=== PATIENT | female | born 1940 | race Caucasian/White ===

== ENCOUNTER 2018-03-05 18:58 | Inpatient (IN) ==
[2018-03-05] MEDS ORDERED: Ondansetron 4 MG/2 ML VIAL IVP ONE (19:06)
--- NOTE | 2018-03-05 19:24 | Emergency Department Note ---
Disposition Clinical Impression: Small bowel obstruction, Accelerated hypertension Abdominal pain Qualifiers: Abdominal location: upper abdomen, unspecified Qualified Code(s): R10.10 - Upper abdominal pain, unspecified Disposition: Admitted As Inpatient Condition: Fair Time of Disposition: 23:54 Abdominal Pain HPI - General Chief Complaint: ED Abdominal Pain Stated Complaint: abd pain/nausea/diarrhea Time Seen by Provider: 03/05/18 19:04 Source: patient Mode of arrival: ambulatory Limitations: no limitations Nursing Notes Reviewed: Yes Vital Signs Reviewed: Yes - History of Present Illness HPI Narrative: 78-year-old female presents an emergency department with abdominal pain and diarrhea. She reports normal bowel movement earlier this morning prior to arrival she had a loose stool. She denies any blood. She has some sharp abdominal pain around 10 o'clock this morning that initially did appear better with a bowel movement. She is currently complaining of some sharp pain in the mid abdomen nonradiating. Denies any nausea or vomiting. Sometimes crampy in nature. She said at one point she did get a little diaphoretic but she was also trying to have a bowel movement at that time. She reports some lightheadedness but denies any syncope. She denies any chest pain or shortness of breath. She is not taken anything for the pain. Denies history of cardiac ischemic disease. She reports a history of bowel obstruction roughly to 3 years ago. States this feels similar to this but it was much located much lower. Patient has a history of hypertension and states is normally well- controlled. She was slightly hypertensive here on arrival. She denies any urinary symptoms. Pain Scale: 9 - Related Data Home Medications Medication Instructions Recorded Confirmed Acetaminophen w/Cod 300-30 mg 1 each PO Q4HR PRN 05/25/16 03/06/18 [Tylenol w/Codeine #3] Albuterol Neb [Proventil Neb] 2.5 mg IH Q4HR PRN 05/25/16 03/06/18 Albuterol Sulfate [Albuterol 2 puff IH Q4HR PRN 05/25/16 03/06/18 Inhaler] Aspirin Enteric Coated [Aspirin EC] 81 mg PO DAILY 05/25/16 03/06/18 Atorvastatin Calcium [Lipitor] 40 mg PO DAILY 05/25/16 03/06/18 Fluticasone Propionate Nasal 2 spr NS BID 05/25/16 03/06/18 [Flonase] Fluticasone/Vilanterol [Breo 1 puff IH DAILY 03/06/18 03/06/18 Ellipta 100-25 Mcg INH] Lisinopril [Zestril] 10 mg PO DAILY 03/06/18 03/06/18 Allergies Allergy/AdvReac Type Severity Reaction Status Date / Time No Known Allergies Allergy Verified 03/05/18 18:59 All systems ED: reviewed and negative except as stated. Review of Systems: As Per HPI Constitutional: Denies: fever, chills Cardiovascular: Denies: chest pain Gastrointestinal: Reports: abdominal pain, diarrhea. Denies: nausea, vomiting Genitourinary: Denies: urgency, dysuria Musculoskeletal: Denies: back pain Abdominal Pain PMH - Past Medical History Medical history: Reports: arthritis, asthma, GERD, hyperlipidemia, hypertension , other Psychiatric history: Reports: anxiety - Social History Smoking status: Never smoker Alcohol use: Reports: rarely Drug use: Reports: none Physical Exam - General Limitations: no limitations General appearance: alert - Head Head exam: atraumatic, normocephalic, normal inspection - Eye Eye exam: Present: normal appearance - ENT ENT exam: normal exam, normal oropharynx, mucous membranes moist - Neck Neck exam: Present: normal inspection, full ROM, trachea midline - Chest Chest inspection: Present: normal inspection, symmetric chest wall rise - Respiratory Respiratory exam: Present: normal lung sounds bilaterally. Absent: respiratory distress - Cardiovascular Cardiovascular exam: Present: regular rate, normal rhythm, normal heart sounds. Absent: systolic murmur, diastolic murmur - Abdominal Exam Abdominal exam: Present: soft, tenderness, normal bowel sounds. Absent: Non- Tender, distention, guarding, rebound, rigidity, Walters's sign, tenderness at McBurney's Point Abdominal tenderness: Present: epigastrium, diffuse - Extremities Exam Extremities exam: Present: normal inspection, full ROM. Absent: tenderness, pedal edema - Back Exam Back exam: Present: normal inspection, full ROM. Absent: tenderness, CVA tenderness (R), CVA tenderness (L) - Neurological Exam Neurological exam: Present: alert, oriented X3 - Psychiatric Psychiatric exam: Present: normal affect, normal mood - Skin Skin exam: Present: warm, dry, intact, normal color. Absent: rash, cyanosis, diaphoresis Course Course Narrative: Patient presents with abdominal pain and some diarrhea over the past 24 hours. History of obstruction roughly 2-3 years ago requiring surgery. Patient initially called this "dissection." After further clarification it was indeed actually an intestinal obstruction. Review of her prior medical record showed obstruction performed by surgery here. Her abdomen was soft but mildly tender diffusely mostly in the epigastric region. EKG did not reveal any acute ischemic changes. Chest pain workup was initiated given her hypertension. We proceeded with the CT of the abdomen to evaluate for dissection with which showed just a partial small bowel obstruction. Patient was not actively vomiting. She was afebrile. Mild leukocytosis. No signs of an organ damage. Her blood pressure is spontaneously improved but remained elevated systolic 170. My ED attending Dr. Holden consulted Dr Mark surgery who agrees with admission and symptom control. Admission to hospital is accepted. Patient remains in stable condition. Impression is abdominal pain and small bowel obstruction. Vital Signs Temperature 98.3 F 03/05/18 18:59 Pulse Rate 89 03/05/18 18:59 Respiratory Rate 20 03/05/18 18:59 Blood Pressure 202/83 03/05/18 18:59 O2 Sat by Pulse Oximetry 96 03/05/18 18:59 Temperature 98.3 F 03/06/18 18:59 Pulse Rate 76 03/06/18 18:59 Respiratory Rate 18 03/06/18 22:18 Blood Pressure 180/77 03/06/18 18:59 O2 Sat by Pulse Oximetry 93 03/06/18 22:18 Oxygen Delivery Oxygen Delivery Room Air Abdominal Pain - MDM Narrative Medical decision making narrative: Patient was discussed with my attending physician who agrees with ED management and final disposition. They independently evaluated the patient. Please refer to their attestation to this encounter for additional information. This note was generated by [employer] voice recognition software and as a result grammatical or spelling errors may occur using this program. - Medical Records Medical records reviewed: Yes I reviewed the patient's medical records. - Lab Data Lab results reviewed: Yes I reviewed the patient's lab results. Result diagrams: 03/06/18 04:49 03/05/18 19:32 Lab Results 03/05/18 03/05/18 03/05/18 Range/Units 19:32 19:32 19:32 WBC 14.5 H (4.3-11.1) K/mcL RBC 4.21 (3.82-4.97) M/mcL Hgb 11.4 L (11.5-15.4) g/dL Hct 35.0 L (35.3-44.9) % MCV 83.1 (83.0-100.0) fL MCH 27.1 L (28.0-33.3) pg MCHC 32.6 (31.6-35.5) g/dL RDW 15.7 H (11.5-14.5) % Plt Count 279 (140-400) K/mcL MPV 10.1 (9.4-12.4) fL Immature Gran % 0.6 (0-4) % Seg Neutrophils % 81.9 % Lymphocytes % 9.6 % Monocytes % 5.5 % Eosinophils % 2.1 % Basophils % 0.3 % Neutrophils # 11.9 H (1.6-8.9) K/mcL Lymphocytes # 1.4 (0.6-4.6) K/mcL Monocytes # 0.8 (0.0-1.3) K/mcL Eosinophils # 0.3 (0.0-0.6) K/mcL Basophils # 0.0 (0.0-0.2) K/mcL Sodium 141 (136-145) mEq/L Potassium 3.6 (3.5-5.1) mEq/L Chloride 102 (98-107) mEq/L Carbon Dioxide 28 (23-29) mEq/L BUN 18 (8-23) mg/dL Creatinine 1.04 (0.60-1.20) mg/dL Est GFR ( Amer) > 60 (> 60) Est GFR (Non-Af Amer) 52 L (> 60) BUN/Creatinine Ratio 17 (6-26) Glucose 147 H (70-105) mg/dL Calculated Osmolality 297 (280-300) Lactic Acid 1.3 (0.5-2.2) mmol/L Calcium 9.9 (8.6-10.3) mg/dL Total Bilirubin 0.5 (0.3-1.0) mg/dL Direct Bilirubin 0.1 (0.0-0.2) mg/dL Indirect Bilirubin 0.4 (0.0-1.2) mg/dL AST 35 (13-39) Units/L ALT 42 (7-52) Units/L Alkaline Phosphatase 85 (34-104) Units/L Troponin I < 0.03 (< 0.04) ng/mL Serum Total Protein 7.1 (6.4-8.9) g/dL Albumin 4.5 (3.5-5.7) g/dL Globulin 2.6 (2.4-3.5) g/dL Albumin/Globulin Ratio 1.7 (1.1-2.2) Lipase 34 (11-82) Units/L Urine Color (Yellow) Urine Clarity (Clear) Urine pH (5.0-8.0) pH Units Ur Specific [place] (1.010-1.025) Urine Protein (Neg-Trace) mg/dL Urine Glucose (UA) (Normal) mg/dL Urine Ketones (Negative) mg/dL Urine Blood (Negative) Urine Nitrite (Negative) Urine Bilirubin (Negative) Urine Urobilinogen (Normal) mg/dL Ur Leukocyte Esterase (Negative) Ur Culture Indicated? (NO) 03/05/18 Range/Units 19:42 WBC (4.3-11.1) K/mcL RBC (3.82-4.97) M/mcL Hgb (11.5-15.4) g/dL Hct (35.3-44.9) % MCV (83.0-100.0) fL MCH (28.0-33.3) pg MCHC (31.6-35.5) g/dL RDW (11.5-14.5) % Plt Count (140-400) K/mcL MPV (9.4-12.4) fL Immature Gran % (0-4) % Seg Neutrophils % % Lymphocytes % % Monocytes % % Eosinophils % % Basophils % % Neutrophils # (1.6-8.9) K/mcL Lymphocytes # (0.6-4.6) K/mcL Monocytes # (0.0-1.3) K/mcL Eosinophils # (0.0-0.6) K/mcL Basophils # (0.0-0.2) K/mcL Sodium (136-145) mEq/L Potassium (3.5-5.1) mEq/L Chloride (98-107) mEq/L Carbon Dioxide (23-29) mEq/L BUN (8-23) mg/dL Creatinine (0.60-1.20) mg/dL Est GFR ( Amer) (> 60) Est GFR (Non-Af Amer) (> 60) BUN/Creatinine Ratio (6-26) Glucose (70-105) mg/dL Calculated Osmolality (280-300) Lactic Acid (0.5-2.2) mmol/L Calcium (8.6-10.3) mg/dL Total Bilirubin (0.3-1.0) mg/dL Direct Bilirubin (0.0-0.2) mg/dL Indirect Bilirubin (0.0-1.2) mg/dL AST (13-39) Units/L ALT (7-52) Units/L Alkaline Phosphatase (34-104) Units/L Troponin I (< 0.04) ng/mL Serum Total Protein (6.4-8.9) g/dL Albumin (3.5-5.7) g/dL Globulin (2.4-3.5) g/dL Albumin/Globulin Ratio (1.1-2.2) Lipase (11-82) Units/L Urine Color Yellow (Yellow) Urine Clarity Clear (Clear) Urine pH 7.5 (5.0-8.0) pH Units Ur Specific [place] 1.014 (1.010-1.025) Urine Protein Negative (Neg-Trace) mg/dL Urine Glucose (UA) Normal (Normal) mg/dL Urine Ketones Negative (Negative) mg/dL Urine Blood Negative (Negative) Urine Nitrite Negative (Negative) Urine Bilirubin Negative (Negative) Urine Urobilinogen Normal (Normal) mg/dL Ur Leukocyte Esterase Negative (Negative) Ur Culture Indicated? NO (NO) - Radiology Data Radiology results reviewed: Yes I reviewed the patient's radiology results. Chest CTA 03/05/18 00:00 IMPRESSION: 1. No aortic dissection or pulmonary embolism. 2. High-grade partial small bowel obstruction with an abrupt transition at the anastomotic site in the ileum. No evidence of perforation. 3. Trace likely reactive free fluid in the pelvis. 4. Small volume of fluid in the mediastinal esophagus with questionable wall thickening distally as can be seen with reflux esophagitis. 5. Small indeterminate lesions in the bilateral kidneys. Consider further evaluation with nonemergent renal protocol MRI. 6. Cholelithiasis. 7. Status post hysterectomy. D/ / Rhys Conrad MD / Rhys Conrad MD Interpreting Provider: Rhys Conrad MD Abdomen/Pelvis CTA 03/05/18 20:20 IMPRESSION: 1. No aortic dissection or pulmonary embolism. 2. High-grade partial small bowel obstruction with an abrupt transition at the anastomotic site in the ileum. No evidence of perforation. 3. Trace likely reactive free fluid in the pelvis. 4. Small volume of fluid in the mediastinal esophagus with questionable wall thickening distally as can be seen with reflux esophagitis. 5. Small indeterminate lesions in the bilateral kidneys. Consider further evaluation with nonemergent renal protocol MRI. 6. Cholelithiasis. 7. Status post hysterectomy. D/ / Rhys Conrad MD / Rhys Conrad MD Interpreting Provider: Rhys Conrad MD - EKG Data EKG attestation: Yes I reviewed and interpreted this EKG. EKG shows normal: sinus rhythm Rate: normal Rhythm: NSR
[2018-03-05 19:45] LABS: Basophils % 0.3 %; Eosinophils # 0.3 K/mcL (0.0-0.6); Eosinophils % 2.1 %; Hemoglobin 11.4 g/dL (11.5-15.4); Immature Granulocytes % 0.6 % (0-4); Lymphocytes # 1.4 K/mcL (0.6-4.6); Lymphocytes % 9.6 %; Mean Corpuscular HGB Conc 32.6 g/dL (31.6-35.5); Mean Corpuscular Hemoglobin 27.1 pg (28.0-33.3); Mean Corpuscular Volume 83.1 fL (83.0-100.0); Mean Platelet Volume 10.1 fL (9.4-12.4); Monocytes # 0.8 K/mcL (0.0-1.3); Monocytes % 5.5 %; Neutrophils # 11.9 K/mcL (1.6-8.9); Platelet Count 279 K/mcL (140-400); Red Blood Count 4.21 M/mcL (3.82-4.97); Red Cell Distribution Width 15.7 % (11.5-14.5); Segmented Neutrophils % 81.9 %
[2018-03-05] MEDS ORDERED: Isovue-370 500 ML INFUS..BTL IV ONE (19:53)
[2018-03-05 19:58] LABS: Bilirubin,Urine Negative (Negative); Blood,Urine Negative (Negative); Clarity,Urine Clear (Clear); Color,Urine Yellow (Yellow); Glucose,Urine (UA) Normal (Normal); Ketones,Urine Negative (Negative); Leukocyte Esterase,Urine Negative (Negative); Nitrite,Urine Negative (Negative); PH,Urine 7.5 pH Units (5.0-8.0); Protein,Urine Negative (Neg-Trace); Specific Gravity,Urine 1.014 (1.010-1.025); Urobilinogen,Urine Normal (Normal)
[2018-03-05 20:07] LABS: Alanine Aminotransferase 42 Units/L (7-52); Albumin 4.5 g/dL (3.5-5.7); Albumin/Globulin Ratio 1.7 (1.1-2.2); Alkaline Phosphatase 85 Units/L (34-104); Aspartate Amino Transferase 35 Units/L (13-39); BUN/Creatinine Ratio 17 (6-26); Bilirubin,Direct 0.1 mg/dL (0.0-0.2); Bilirubin,Indirect 0.4 mg/dL (0.0-1.2); Bilirubin,Total 0.5 mg/dL (0.3-1.0); Blood Urea Nitrogen 18 mg/dL (8-23); Calcium 9.9 mg/dL (8.6-10.3); Carbon Dioxide 28 mEq/L (23-29); Chloride 102 mEq/L (98-107); Globulin 2.6 g/dL (2.4-3.5); Glucose 147 mg/dL (70-105); Lipase 34 Units/L (11-82); Osmolality,Calculated 297 (280-300); Potassium 3.6 mEq/L (3.5-5.1); Sodium 141 mEq/L (136-145); Total Protein 7.1 g/dL (6.4-8.9); Troponin I < 0.03 ng/mL (< 0.04); eGFR For African Americans > 60 (> 60); eGFR For Non-African Americans 52 (> 60)
--- NOTE | 2018-03-05 21:32 | Emergency Department Note ---
Disposition Clinical Impression: Abdominal pain Qualifiers: Abdominal location: upper abdomen, unspecified Qualified Code(s): R10.10 - Upper abdominal pain, unspecified Disposition: Still a Patient Condition: Fair Referrals: Bon Castellanos MD [Partnered Physician] - Forms: ED Satisfaction Letter, Work/School Release Abdominal Pain HPI - General Chief Complaint: ED Abdominal Pain Stated Complaint: abd pain/nausea/diarrhea Time Seen by Provider: 03/05/18 19:04 Source: patient Mode of arrival: ambulatory Limitations: no limitations Nursing Notes Reviewed: Yes Vital Signs Reviewed: Yes - History of Present Illness Pain Scale: 5 - Related Data Home Medications Medication Instructions Recorded Confirmed Acetaminophen w/Cod 300-30 mg 1 each PO Q4HR PRN 05/25/16 05/25/16 [Tylenol w/Codeine #3] Albuterol Neb [Proventil Neb] 2.5 mg IH Q4HR PRN 05/25/16 05/25/16 Albuterol Sulfate [Albuterol 2 puff IH Q4HR PRN 05/25/16 05/25/16 Inhaler] Aspirin Enteric Coated [Aspirin EC] 81 mg PO DAILY 05/25/16 05/25/16 Atorvastatin Calcium [Lipitor] 80 mg PO DAILY 05/25/16 05/25/16 Budesonide/Formoterol 160/4.5 2 puff IH BIDR 05/25/16 05/25/16 [Symbicort 160/4.5] Dicyclomine [Bentyl] 10 mg PO QID 05/25/16 05/25/16 Fluticasone Propionate Nasal 2 spr NS BID 05/25/16 05/25/16 [Flonase] Lisinopril/Hydrochlorothiazide 1 each PO DAILY 05/25/16 05/25/16 [Zestoretic 10-12.5 mg Tablet] traMADol [Ultram] 100 mg PO TID 05/25/16 05/25/16 Previous Rx's Medication Instructions Recorded Ondansetron ODT [Zofran ODT] 4 mg SL Q6HR PRN #15 tab.rapdis 05/21/16 Allergies Allergy/AdvReac Type Severity Reaction Status Date / Time No Known Allergies Allergy Verified 03/05/18 18:59 Constitutional: Denies: fever, chills Cardiovascular: Denies: chest pain Gastrointestinal: Reports: abdominal pain, diarrhea. Denies: nausea, vomiting Genitourinary: Denies: urgency, dysuria Musculoskeletal: Denies: back pain Abdominal Pain PMH - Past Medical History Medical history: Reports: arthritis, asthma, GERD, hyperlipidemia, hypertension , other Psychiatric history: Reports: anxiety - Social History Smoking status: Never smoker Alcohol use: Reports: rarely Drug use: Reports: none Physical Exam - General Limitations: no limitations General appearance: alert Course Vital Signs Temperature 98.3 F 03/05/18 18:59 Pulse Rate 89 03/05/18 18:59 Respiratory Rate 20 03/05/18 18:59 Blood Pressure 202/83 03/05/18 18:59 O2 Sat by Pulse Oximetry 96 03/05/18 18:59 Temperature 98.3 F 03/05/18 18:59 Pulse Rate 74 03/05/18 21:10 Respiratory Rate 18 03/05/18 21:10 Blood Pressure 180/87 03/05/18 21:10 O2 Sat by Pulse Oximetry 97 03/05/18 21:10 Oxygen Delivery Oxygen Delivery Room Air Abdominal Pain - Lab Data Result diagrams: 03/05/18 19:32 03/05/18 19:32 Lab Results 03/05/18 03/05/18 03/05/18 Range/Units 19:32 19:32 19:32 WBC 14.5 H (4.3-11.1) K/mcL RBC 4.21 (3.82-4.97) M/mcL Hgb 11.4 L (11.5-15.4) g/dL Hct 35.0 L (35.3-44.9) % MCV 83.1 (83.0-100.0) fL MCH 27.1 L (28.0-33.3) pg MCHC 32.6 (31.6-35.5) g/dL RDW 15.7 H (11.5-14.5) % Plt Count 279 (140-400) K/mcL MPV 10.1 (9.4-12.4) fL Immature Gran % 0.6 (0-4) % Seg Neutrophils % 81.9 % Lymphocytes % 9.6 % Monocytes % 5.5 % Eosinophils % 2.1 % Basophils % 0.3 % Neutrophils # 11.9 H (1.6-8.9) K/mcL Lymphocytes # 1.4 (0.6-4.6) K/mcL Monocytes # 0.8 (0.0-1.3) K/mcL Eosinophils # 0.3 (0.0-0.6) K/mcL Basophils # 0.0 (0.0-0.2) K/mcL Sodium 141 (136-145) mEq/L Potassium 3.6 (3.5-5.1) mEq/L Chloride 102 (98-107) mEq/L Carbon Dioxide 28 (23-29) mEq/L BUN 18 (8-23) mg/dL Creatinine 1.04 (0.60-1.20) mg/dL Est GFR ( Amer) > 60 (> 60) Est GFR (Non-Af Amer) 52 L (> 60) BUN/Creatinine Ratio 17 (6-26) Glucose 147 H (70-105) mg/dL Calculated Osmolality 297 (280-300) Lactic Acid 1.3 (0.5-2.2) mmol/L Calcium 9.9 (8.6-10.3) mg/dL Total Bilirubin 0.5 (0.3-1.0) mg/dL Direct Bilirubin 0.1 (0.0-0.2) mg/dL Indirect Bilirubin 0.4 (0.0-1.2) mg/dL AST 35 (13-39) Units/L ALT 42 (7-52) Units/L Alkaline Phosphatase 85 (34-104) Units/L Troponin I < 0.03 (< 0.04) ng/mL Serum Total Protein 7.1 (6.4-8.9) g/dL Albumin 4.5 (3.5-5.7) g/dL Globulin 2.6 (2.4-3.5) g/dL Albumin/Globulin Ratio 1.7 (1.1-2.2) Lipase 34 (11-82) Units/L Urine Color (Yellow) Urine Clarity (Clear) Urine pH (5.0-8.0) pH Units Ur Specific [place] (1.010-1.025) Urine Protein (Neg-Trace) mg/dL Urine Glucose (UA) (Normal) mg/dL Urine Ketones (Negative) mg/dL Urine Blood (Negative) Urine Nitrite (Negative) Urine Bilirubin (Negative) Urine Urobilinogen (Normal) mg/dL Ur Leukocyte Esterase (Negative) Ur Culture Indicated? (NO) 03/05/18 Range/Units 19:42 WBC (4.3-11.1) K/mcL RBC (3.82-4.97) M/mcL Hgb (11.5-15.4) g/dL Hct (35.3-44.9) % MCV (83.0-100.0) fL MCH (28.0-33.3) pg MCHC (31.6-35.5) g/dL RDW (11.5-14.5) % Plt Count (140-400) K/mcL MPV (9.4-12.4) fL Immature Gran % (0-4) % Seg Neutrophils % % Lymphocytes % % Monocytes % % Eosinophils % % Basophils % % Neutrophils # (1.6-8.9) K/mcL Lymphocytes # (0.6-4.6) K/mcL Monocytes # (0.0-1.3) K/mcL Eosinophils # (0.0-0.6) K/mcL Basophils # (0.0-0.2) K/mcL Sodium (136-145) mEq/L Potassium (3.5-5.1) mEq/L Chloride (98-107) mEq/L Carbon Dioxide (23-29) mEq/L BUN (8-23) mg/dL Creatinine (0.60-1.20) mg/dL Est GFR ( Amer) (> 60) Est GFR (Non-Af Amer) (> 60) BUN/Creatinine Ratio (6-26) Glucose (70-105) mg/dL Calculated Osmolality (280-300) Lactic Acid (0.5-2.2) mmol/L Calcium (8.6-10.3) mg/dL Total Bilirubin (0.3-1.0) mg/dL Direct Bilirubin (0.0-0.2) mg/dL Indirect Bilirubin (0.0-1.2) mg/dL AST (13-39) Units/L ALT (7-52) Units/L Alkaline Phosphatase (34-104) Units/L Troponin I (< 0.04) ng/mL Serum Total Protein (6.4-8.9) g/dL Albumin (3.5-5.7) g/dL Globulin (2.4-3.5) g/dL Albumin/Globulin Ratio (1.1-2.2) Lipase (11-82) Units/L Urine Color Yellow (Yellow) Urine Clarity Clear (Clear) Urine pH 7.5 (5.0-8.0) pH Units Ur Specific [place] 1.014 (1.010-1.025) Urine Protein Negative (Neg-Trace) mg/dL Urine Glucose (UA) Normal (Normal) mg/dL Urine Ketones Negative (Negative) mg/dL Urine Blood Negative (Negative) Urine Nitrite Negative (Negative) Urine Bilirubin Negative (Negative) Urine Urobilinogen Normal (Normal) mg/dL Ur Leukocyte Esterase Negative (Negative) Ur Culture Indicated? NO (NO) Attestation Statement - Attestation Attestation: I, Bon Holden, examined this patient and my medical decision-making was reviewed with the SCANNER OPERATOR/PA/Advanced Practice Nurse/Resident Physician. I agree with the documented findings, disposition and treatment plan as described except to the extent set forth below. 78-year-old female presents emergency Department with concerns of abdominal pain. Patient states symptoms started around 3 hours prior to arrival to the emergency department, she had epigastric abdominal pain described as a cramping that did not radiate. Patient states symptoms were intermittent lasting about 15 minutes at a time and resolving without intervention. Patient denies fever, chills, chest pain, palpitations or syncope. Patient had one episode of liquid brown stool, denies hematochezia or melena. No recent trauma or changes in her medications. Patient feels nauseated but has not vomited. Patient was concerned and wanted to be evaluated in the emergency department because she had a history of small bowel obstruction however the pain today does not feel as severe as that pain. Patient denies a feeling of abdominal distention today. Patient initially stated that she had a history of aortic dissection. CT of the chest abdomen pelvis was obtained to further evaluate possible dissection. Imaging is pending at this time.
[2018-03-05] MEDS ORDERED: Naloxone 0.4 MG/ML INJ IVP PRN (23:01)
[2018-03-05] MEDS ORDERED: Acetaminophen 325 MG TABLET PO PRN (23:07)
--- NOTE | 2018-03-05 23:17 | Internal Med History&Physical ---
<Siva De - Last Filed: 03/06/18 00:29> Date of Encounter: 03/06/18 Time of Encounter: 23:00 Internal Medicine - H&P: HPI Chief complaint: Abdominal pain Admitted From: Emergency Dept Plans for Post Hospital Care: Home History of present illness: Ms. Chilel is a 78 year old female with PMHx hypertension, invasive SCC of left medial foot, asthma, no CAD history, s/p hysterectomy presents to ED with abdominal pain and diarrhea for 1 day. This started at 10am, which improved with bowel movement. However, sharp abdominal pain in the mid abdomen continued this afternoon, and she decided to come to ED. She reports that she has history of SBO 2 years ago and this is similar, but not as severe. Last bowel movement was at 1800, which was loose, and abdominal pain did not improve. Abdominal pain is associated with nausea, but not vomiting. She denies fever, chills, CP, SOB, cough, dysuria, hematuria. Reports that her dinner last night consisted of carrots and vegetables. Has been unable to tolerate PO intake due to nausea. Tramadol seems to diminish her pain, which is currently 0/10 after given Zofran in the ED. Denies headaches, vision changes. No further acute complaints. Past Med Surg Social Fam HX - Past Medical History Medical history: arthritis, asthma, GERD, hyperlipidemia, hypertension, other Psychiatric history: anxiety - Past Surgical History Surgical History: non-contributory, colectomy, hysterectomy, other - Social History Smoking Status: Never smoker Smokeless Tobacco Status: No Alcohol use: rarely Drug use: none Internal Medicine - H&P: Meds Acetaminophen w/Cod 300-30 mg [Tylenol w/Codeine #3] 1 each PO Q4HR PRN [History] Albuterol Neb [Proventil Neb] 2.5 mg IH Q4HR PRN 05/25/16 [History] Albuterol Sulfate [Albuterol Inhaler] 2 puff IH Q4HR PRN 05/25/16 [History] Aspirin Enteric Coated [Aspirin EC] 81 mg PO DAILY 05/25/16 [History] Atorvastatin Calcium [Lipitor] 40 mg PO DAILY 05/25/16 [History] Budesonide/Formoterol 160/4.5 [Symbicort 160/4.5] 2 puff IH BIDR 05/25/16 [ History] Fluticasone Propionate Nasal [Flonase] 2 spr NS BID 05/25/16 [History] Lisinopril/Hydrochlorothiazide [Zestoretic 10-12.5 mg Tablet] 1 each PO DAILY [History] traMADol [Ultram] 100 mg PO TID 05/25/16 [History] 3 Allergy/AdvReac Type Severity Reaction Status Date / Time No Known Allergies Allergy Verified 03/05/18 18:59 All Systems PM: A 10-system review of systems was performed and is negative for pertinent findings except as documented above in the HPI. - Constitutional Constitutional: no chills, no fever(s), no night sweats - EENT Eyes: no change in vision, no discharge, no pain, no photophobia Ears: no ear discharge, no ear pain, no tinnitus Nose, mouth and throat: no dysphagia, no nasal discharge, no neck pain, no sore throat - Cardiovascular Cardiovascular ROS IM: no chest pain, no diaphoresis, no dyspnea, no lightheadedness, no palpitations, no syncope - Respiratory Respiratory: no cough, no dyspnea, no wheezing, no excessive phlegm production - Gastrointestinal Gastrointestinal: abdominal pain (upper abdominal pain ), diarrhea, no hematemesis, no hematochezia, no melena, no nausea, no vomiting - Genitourinary Genitourinary: no change in urinary stream, no dysuria, no flank pain, no hematuria - Musculoskeletal Musculoskeletal ROS IM: no numbness, no tingling - Integumentary Integumentary IM: no rash, no unusual bruising - Neurological Neurological ROS: no confusion, no convulsions, no focal weakness, no numbness, no tingling, no tremor(s) - Hematologic/Lymphatic Hematologic/Lymphatic: no easy bruising - Constitutional Vitals: Temp Pulse Resp BP Pulse Ox 98.3 F 74 18 162/84 99 03/05/18 18:59 03/05/18 22:41 03/05/18 22:41 03/05/18 22:41 03/05/18 22:41 General appearance: Present: A&O X 3, no acute distress, answers questions appropriately - Head Head exam: Present: atraumatic, normocephalic - Eye Eye exam: Present: EOMI, conjuntiva pink, sclera anicteric - Neck Neck exam general surgery: Present: supple, trachea midline. Absent: lymphadenopathy - Respiratory Respiratory exam: Present: CTAB. Absent: accessory muscle use, rales, rhonchi, wheezes - Cardiovascular Cardiovascular exam: Present: RRR, +S1, +S2. Absent: diastolic murmur, gallop, rubs, systolic murmur - GI/Abdominal GI/Abdominal exam: Present: diminished bowel sounds, distended, soft, no peritoneal signs. Absent: tenderness - Extremities Exam Extremities exam: Present: warm, radial pulses palpable and symmetrical. Absent : calf tenderness, cyanotic, pedal edema - Neurological Exam Neurological exam: Present: oriented X3, no focal deficits. Absent: pronater drift, facial droop, speech deficit - Skin Skin exam: Present: dry, intact Internal Med - H&P Results - Labs CBC & Chem 7: 03/05/18 19:32 03/05/18 19:32 - Assessment and plan (1) Small bowel obstruction, partial Current Visit: Yes Status: Acute Assessment and plan: Nausea and abdominal pain in the setting of partial small bowel obstruction. Had previous more severe episode in 2014. CT demonstrates partial SBO at ileum without perforation, kidney lesions - consider nonemergent MRI. Keep patient on NPO and bowel rest. Hold PO medications Zofran as needed for nausea Recommend NGT if symptoms do not resolve. Surgery consulted and recommendations appreciated. (2) Hypertension Current Visit: Yes Status: Acute Assessment and plan: Chronic. Currently uncontrolled with SBP 160s - 200s Hydralazine as needed. Hold PO meds for now. Qualifiers: Qualified Code(s): I10 - Essential (primary) hypertension (3) DVT prophylaxis Current Visit: Yes Status: Acute Assessment and plan: SubQ Heparin (4) Asthma Current Visit: Yes Status: Acute Assessment and plan: Continue home medications. Qualifiers: Qualified Code(s): J45.909 - Unspecified asthma, uncomplicated - Time Spent With Patient Total time spent is greater than 50% in coordination of care (as documented) at patient's floor/unit and/or counseling patient: Greater than 35 minutes <Sukhjinder Chatterjee P - Last Filed: 03/06/18 01:15> Date of Encounter: 03/05/18 Internal Medicine - H&P: HPI History of present illness: Ms. Ranjana is a 78 year old female All Systems PM: A 10-system review of systems was performed and is negative for pertinent findings except as documented above in the HPI. - Constitutional Vitals: Temp Pulse Resp BP Pulse Ox 98.5 F 80 15 176/73 92 03/05/18 23:37 03/05/18 23:37 03/05/18 23:37 03/05/18 23:37 03/05/18 23:37 Internal Med - H&P Results - Labs CBC & Chem 7: 03/05/18 19:32 03/05/18 19:32 - Attending Attestation I have personally seen and examined this patient in the ER. I have discussed the case with the resident physician. I agree with the findings and plan as outlined in the resident physician's note except as below. Briefly, patient admitted with 1-day history of abdominal pain, nausea, and diarrhea. She denies vomiting. Pain is located in upper epigastric area. It does not radiate anywhere. There is no rebound or guarding. She states to me that her abdominal pain has resolved. She still has some very mild nausea, but no vomiting. She denies fever or chills. CT abdomen in the ED showed partial small bowel obstruction. ED physician spoke with on-call surgeon Dr. Mark. She will evaluate patient in the AM. Patient in no distress at this time and no concern for acute abdomen. We will keep NPO, hydrate gently with IVF, use IV zofran for nausea control, and sublingual oxycodone for pain control. Patient is adamant about no NG tube, so will defer this for now since she is clinically improving. We will consider trial of diet tomorrow after surgery sees her. - Assessment and plan (1) Small bowel obstruction, partial Current Visit: Yes Status: Acute (2) DVT prophylaxis Current Visit: Yes Status: Acute (3) Hypertension Current Visit: Yes Status: Acute Qualifiers: Qualified Code(s): I10 - Essential (primary) hypertension (4) Asthma Current Visit: Yes Status: Acute Qualifiers: Qualified Code(s): J45.909 - Unspecified asthma, uncomplicated - Time Spent With Patient Total time spent is greater than 50% in coordination of care (as documented) at patient's floor/unit and/or counseling patient:
[2018-03-05] MEDS ORDERED: Ondansetron 4 MG/2 ML VIAL IVP PRN (23:20)
[2018-03-05] MEDS ORDERED: *HR* HYDROcodone/Acet 5/325 mg TABLET PO PRN (23:21)
[2018-03-06] MEDS: 0.9 % Sodium Chloride 1,000 ML IVC SCH ×3 (00:48→21:30)
[2018-03-06] MEDS ORDERED: Albuterol 2.5 MG/3 ML NEBULIZER IH PRN (00:56)
[2018-03-06] MEDS: Pantoprazole 40 MG VIAL IVP SCH (01:20)
[2018-03-06] MEDS ORDERED: Chloraseptic Spray 177 ML BOTTLE MM PRN (03:39)
[2018-03-06 05:41] LABS: Basophils % 0.2 %; Eosinophils % 0.1 %; Hematocrit 33.6 % (35.3-44.9); Hemoglobin 11.2 g/dL (11.5-15.4); Immature Granulocytes % 0.5 % (0-4); Lymphocytes # 1.2 K/mcL (0.6-4.6); Lymphocytes % 7.4 %; Mean Corpuscular HGB Conc 33.3 g/dL (31.6-35.5); Mean Corpuscular Hemoglobin 27.8 pg (28.0-33.3); Mean Corpuscular Volume 83.4 fL (83.0-100.0); Mean Platelet Volume 10.3 fL (9.4-12.4); Monocytes # 1.1 K/mcL (0.0-1.3); Monocytes % 6.9 %; Neutrophils # 13.9 K/mcL (1.6-8.9); Platelet Count 285 K/mcL (140-400); Red Blood Count 4.03 M/mcL (3.82-4.97); Red Cell Distribution Width 15.7 % (11.5-14.5); Segmented Neutrophils % 84.9 %
[2018-03-06] MEDS: *HR* Heparin 5,000 UNIT/ML VIAL SQ SCH ×2 (05:48→17:37)
[2018-03-06] MEDS: Budesonide/Formoterol 160/4.5 MDI IH SCH ×2 (07:44→22:18)
[2018-03-06] MEDS ORDERED: traMADol 50 MG TABLET PO SCH (09:00)
[2018-03-06] MEDS ORDERED: Aspirin Enteric Coated 81 MG Tablet PO SCH (09:00)
--- NOTE | 2018-03-06 09:28 | General Surgery Consult Note ---
<Blanca Rod - Last Filed: 03/06/18 11:08> Date of Encounter: 03/06/18 Time of Encounter: 09:28 Assessment and Plan (1) Small bowel obstruction Current Visit: Yes Status: Acute Noted transition point at the anastomosis. Small bowel obstruction could be consistent with mechanical/fibrous obstruction versus stricture. We will trial the patient on bowel rest. If her symptoms worsen she will likely require surgical intervention. We will continue to follow along with you. Plan: NPO maintain NG to LWIS may have ice chips sparingly or hardtack candy for comfort continue supportive care and discomfort management continue G.I. and DVT prophylaxis per primary team ambulate as tolerated out of the bed to chair at least TID (2) History of necrotic bowel Current Visit: Yes Status: Acute See assessment and plan above (3) Functional constipation Current Visit: Yes Status: Acute Once acute small bowel obstruction is resolved we will make recommendations for chronic functional constipation. History of Present Illness Consult date: 03/05/18 (Dr. Stephane Barone) Reason for consult: abdominal pain (SBO) Requesting physician: Bon Holden History of present illness: Eladia is a 78 year occasion female who presents for abdominal discomfort, vomiting, and bloating. She reports that she typically has to take a laxative to have a daily bowel movements but yesterday she did not have to take a laxative and had approximately 4 bowel movements that were large consistency and was followed by severe cramping that was relentless. She then presented to the emergency department. Her hospital course thus far has included a CT a of the chest and abdomen to rule out dissection which noted decompression of the:, anastomotic structures were seen at the ileum and there was an abrupt transition at the anastomosis with the distal ileum decompressed. And NG tube was placed and immediate return of approximately 1 L emesis was returned. Surgery has been asked to evaluate this patient for a small bowel obstruction. The patient was seen by Dr. Roberto in the past as detailed below and requests that he see her this admission. She denies fever, chills, chest pain, shortness of breath, generalized weakness , black, bloody, or tarry stool, changes in bowel habits, or urinary signs or symptoms. She reports dependence upon laxatives as detailed above. Her last colonoscopy was 2012. She has a pertinent surgical history of a exploratory laparotomy with a small bowel resection on 03/02/[address] Barone. Per op notes a 45 cm specimen of small bowel necrosis was removed the area was noted to be hemorrhagic and was in a tight spot that appeared to be adhesive band with twisting/adhering to the bowel proximal and distal to the area however with further exploration he could not find any adhesive bands. The proximal and distal area to the 45 cm described above was in good condition and the decision was made to perform a primary resection with a resulting in her ostomy closed with TA 60 yielding an excellent technical functional end to end anastomosis of the small bowel. She was seen in follow-up on 03/25/2015 at which time final measurement showed a 50 to 70 cm of small bowel resected due to ischemia secondary to adhesive band. Lysis of adhesions was noted to have been performed during the small bowel resection. She was advised to follow up as needed. Past Med Surg Social Fam HX - Past Medical History Source: patient, old records reviewed Medical history: arthritis, asthma, GERD, hyperlipidemia, hypertension, other ( Small bowel obstruction secondary necrosis that was secondary to adhesions) Psychiatric history: anxiety - Past Surgical History Surgical History: non-contributory, colectomy, hysterectomy, other - Social History Smoking Status: Never smoker Smokeless Tobacco Status: No Alcohol use: rarely Drug use: none Occupational status: unemployed Current living situation: Home - Independent Activity Level: Independent ambulation Recent Out of Country Travel Within the Last 8 Weeks: No Exposure or Possible Exposure to Illness During Travel: No Medications and Allergies Acetaminophen w/Cod 300-30 mg [Tylenol w/Codeine #3] 1 each PO Q4HR PRN [History] Albuterol Neb [Proventil Neb] 2.5 mg IH Q4HR PRN 05/25/16 [History] Albuterol Sulfate [Albuterol Inhaler] 2 puff IH Q4HR PRN 05/25/16 [History] Aspirin Enteric Coated [Aspirin EC] 81 mg PO DAILY 05/25/16 [History] Atorvastatin Calcium [Lipitor] 40 mg PO DAILY 05/25/16 [History] Fluticasone Propionate Nasal [Flonase] 2 spr NS BID 05/25/16 [History] Fluticasone/Vilanterol [Breo Ellipta 100-25 Mcg INH] 1 puff IH DAILY 03/06/18 [ History] Lisinopril [Zestril] 10 mg PO DAILY 03/06/18 [History] 3 Allergy/AdvReac Type Severity Reaction Status Date / Time No Known Allergies Allergy Verified 03/05/18 18:59 Review of Systems All systems PM: reviewed and no additional remarkable complaints except as stated All systems PM: The remainder of the systems were reviewed and are negative General Surgery Exam Initial Vital Signs Temp Pulse Resp BP Pulse Ox 98.3 F 89 20 202/83 96 03/05/18 18:59 03/05/18 18:59 03/05/18 18:59 03/05/18 18:59 03/05/18 18:59 VITAL SIGNS: Reviewed. See [facility] GENERAL: In no apparent distress. HEENT: Normocephalic, atraumatic, pupils are equal and reactive, extraocular motions intact, oropharynx is pink and moist, there is no neck adenopathy or JVD noted. CHEST/RESPIRATORY: The thorax is free from signs of trauma. Lung sounds: clear to auscultation, normal respiratory effort CARDIAC: Regular rate and rhythm. Normal S1 and S2, without murmurs, gallops, or rubs. VASCULAR: No Edema. 2+ peripheral pulses. ABDOMEN: soft, nontender, nondistended, hypoactive bowel sounds. NG tube is in place. MUSCULOSKELETAL: Good range of motion of all major joints. Extremities without clubbing, cyanosis or edema. NEUROLOGIC EXAM: Alert and oriented x 3. Speech normal. Follows commands. PSYCHIATRIC: Mood normal. SKIN: No rash or lesions. Exam Initial Vital Signs Temp Pulse Resp BP Pulse Ox 98.3 F 89 20 202/83 96 03/05/18 18:59 03/05/18 18:59 03/05/18 18:59 03/05/18 18:59 03/05/18 18:59 Results - Labs 03/06/18 04:49 03/05/18 19:32 Abnormal lab results WBC 16.4 K/mcL (4.3-11.1) H 03/06/18 04:49 Hgb 11.2 g/dL (11.5-15.4) L 03/06/18 04:49 Hct 33.6 % (35.3-44.9) L 03/06/18 04:49 MCH 27.8 pg (28.0-33.3) L 03/06/18 04:49 RDW 15.7 % (11.5-14.5) H 03/06/18 04:49 Neutrophils # 13.9 K/mcL (1.6-8.9) H 03/06/18 04:49 Est GFR (Non-Af Amer) 52 (> 60) L 03/05/18 19:32 Glucose 147 mg/dL (70-105) H 03/05/18 19:32 POC Glucose 155 mg/dL (70-99) H 03/06/18 05:43 All other labs normal. - Imaging CT scan - abdomen: report reviewed CT scan - pelvis: report reviewed Consult Discharge Plan - Plan Referrals: Bon Castellanos MD [Primary Care Provider] - <Stephane Barone - Last Filed: 03/07/18 13:25> Date of Encounter: 03/06/18 Review of Systems All systems PM: The remainder of the systems were reviewed and are negative General Surgery Exam Initial Vital Signs Temp Pulse Resp BP Pulse Ox 98.3 F 89 20 202/83 96 03/05/18 18:59 03/05/18 18:59 03/05/18 18:59 03/05/18 18:59 03/05/18 18:59 Exam Initial Vital Signs Temp Pulse Resp BP Pulse Ox 98.3 F 89 20 202/83 96 03/05/18 18:59 03/05/18 18:59 03/05/18 18:59 03/05/18 18:59 03/05/18 18:59 Results - Labs 03/07/18 04:28 03/07/18 04:28 Abnormal lab results Hgb 10.2 g/dL (11.5-15.4) L 03/07/18 04:28 Hct 32.9 % (35.3-44.9) L 03/07/18 04:28 MCH 26.2 pg (28.0-33.3) L 03/07/18 04:28 MCHC 31.0 g/dL (31.6-35.5) L 03/07/18 04:28 RDW 16.2 % (11.5-14.5) H 03/07/18 04:28 Potassium 3.3 mEq/L (3.5-5.1) L 03/07/18 04:28 Chloride 110 mEq/L (98-107) H 03/07/18 04:28 BUN/Creatinine Ratio 28 (6-26) H 03/07/18 04:28 Calcium 8.3 mg/dL (8.6-10.3) L 03/07/18 04:28 Diabetes panel 03/07/18 Range/Units 04:28 Sodium 143 (136-145) mEq/L Potassium 3.3 L (3.5-5.1) mEq/L Chloride 110 H (98-107) mEq/L Carbon Dioxide 25 (23-29) mEq/L BUN 23 (8-23) mg/dL Creatinine 0.82 (0.60-1.20) mg/dL Glucose 89 (70-105) mg/dL Calcium 8.3 L (8.6-10.3) mg/dL Calcium panel 03/07/18 Range/Units 04:28 Calcium 8.3 L (8.6-10.3) mg/dL Pituitary panel 03/07/18 Range/Units 04:28 Sodium 143 (136-145) mEq/L Potassium 3.3 L (3.5-5.1) mEq/L Chloride 110 H (98-107) mEq/L Carbon Dioxide 25 (23-29) mEq/L BUN 23 (8-23) mg/dL Creatinine 0.82 (0.60-1.20) mg/dL Glucose 89 (70-105) mg/dL Calcium 8.3 L (8.6-10.3) mg/dL Adrenal panel 03/07/18 Range/Units 04:28 Sodium 143 (136-145) mEq/L Potassium 3.3 L (3.5-5.1) mEq/L Chloride 110 H (98-107) mEq/L Carbon Dioxide 25 (23-29) mEq/L BUN 23 (8-23) mg/dL Creatinine 0.82 (0.60-1.20) mg/dL Glucose 89 (70-105) mg/dL Calcium 8.3 L (8.6-10.3) mg/dL All other labs normal. - Attending Attestation I have personally performed a face to face evaluation on this patient. I have reviewed and agree with the care plan. History and Exam by me shows: The patient is seen and evaluated with the clinical nurse practitioner and the residents on rounds. I personally reviewed the CAT scan images. I agree with the radiologic diagnosis of transition point at the anastomosis port appears to be a partial bowel obstruction. The patient is seen and evaluated with the nasogastric tube in place. Her symptoms have resolved with nasogastric tube drainage. We will plan a 48 hour period of nasogastric tube drainage and bowel rest. The differential diagnosis is vegetable fiber impaction at the anastomosis versus scarring or anatomic twisting at the anastomosis. If she does not have a bowel movement by tomorrow and we cannot clinically rule out bowel obstruction, we will obtain small bowel follow-through Stephane Barone MD FACS
[2018-03-06] MEDS: Fluticasone Propionate Nasal 50 MCG/SPRAY BOTTLE NS SCH ×2 (09:43→21:49)
[2018-03-06] MEDS: OXYCODONE Oral CONC 10 MG/0.5 ML ORAL.SYG SL PRN ×2 (13:17→21:37)
--- NOTE | 2018-03-06 13:57 | Electrocardiograph Report ---
[address] [place], [place] [address] Test Date: 2018-03-05 Pat Name: Eladia Chilel Department: 103 Room: 3A42 Gender: F [employer] Coordinator: : 1940 Requested By: Bon Holden Order Number: [id number] Reading MD: Sarah Rebolledo Measurements Intervals Nichols Rate: 75 P: 54 GA: 153 QRS: 52 QRSD: 87 T: 67 QT: 399 QTc: 427 Interpretive Statements SINUS RHYTHM WITH SINUS ARRHYTHMIA Electronically Signed On 03-06-2018 13:55:51 EDT by Sarah Rebolledo
--- NOTE | 2018-03-06 15:11 | Discharge Summary ---
Date of Encounter: 03/06/18 - Discharge Diagnosis (1) Small bowel obstruction, partial Status: Acute (2) DVT prophylaxis Status: Acute (3) Hypertension Status: Acute Qualifiers: Qualified Code(s): I10 - Essential (primary) hypertension (4) Asthma Status: Acute Qualifiers: Qualified Code(s): J45.909 - Unspecified asthma, uncomplicated Hospital course: Ms. Chilel is a 78 year old female - Time Spent with Patient Total time spent providing and/or coordinating discharge services: - Discharge Medications Home Medications: Acetaminophen w/Cod 300-30 mg [Tylenol w/Codeine #3] 1 each PO Q4HR PRN [History] Albuterol Neb [Proventil Neb] 2.5 mg IH Q4HR PRN 05/25/16 [History] Albuterol Sulfate [Albuterol Inhaler] 2 puff IH Q4HR PRN 05/25/16 [History] Aspirin Enteric Coated [Aspirin EC] 81 mg PO DAILY 05/25/16 [History] Atorvastatin Calcium [Lipitor] 40 mg PO DAILY 05/25/16 [History] Fluticasone Propionate Nasal [Flonase] 2 spr NS BID 05/25/16 [History] Fluticasone/Vilanterol [Breo Ellipta 100-25 Mcg INH] 1 puff IH DAILY 03/06/18 [ History] Lisinopril [Zestril] 10 mg PO DAILY 03/06/18 [History] Allergies/Adverse Reactions: 3 Allergy/AdvReac Type Severity Reaction Status Date / Time No Known Allergies Allergy Verified 03/05/18 18:59 Date of admission: 03/06/18 00:58 Primary care physician: Bon Castellanos - Constitutional Vitals: Temp Pulse Resp BP Pulse Ox 98.5 F 83 16 159/73 93 03/06/18 11:41 03/06/18 11:41 03/06/18 11:41 03/06/18 11:41 03/06/18 11:41 General appearance: Present: A&O X 3, no acute distress, answers questions appropriately - Patient Status Condition: Fair - Discharge Instructions Follow Up With: Bon Castellanos MD [Primary Care Provider] -
--- NOTE | 2018-03-06 15:14 | Internal Med Progress Note ---
Date of Encounter: 03/06/18 Time of Encounter: 09:50 - Assessment and plan (1) Small bowel obstruction, partial Current Visit: Yes Status: Acute Assessment and plan: Continues to be symptomatic. Although improving. Surgery following. Continue to keep patient nothing by mouth. Nasogastric tube to low intermittent suction. Monitor vital signs closely. Patient has had about 700 mL of drainage through the nasogastric tube. Continue IV hydration. Will need surgery if she fails conservative management. Moderate risk for complications. (2) Hypertension Current Visit: Yes Status: Chronic Assessment and plan: Blood pressure is elevated. On IV hydralazine as needed. Patient also takes lisinopril at home. As she is nothing by mouth is not doing this medication. We will place him on Lopressor IV every 6 hours scheduled. Qualifiers: Hypertension type: essential hypertension Qualified Code(s): I10 - Essential (primary) hypertension (3) Asthma Current Visit: Yes Status: Chronic Assessment and plan: Not in acute exacerbation. Continue bronchodilators as needed. Qualifiers: Qualified Code(s): J45.909 - Unspecified asthma, uncomplicated (4) DVT prophylaxis Current Visit: Yes Status: Acute Assessment and plan: On subcutaneous heparin - Time Spent With Patient Total time spent is greater than 50% in coordination of care (as documented) at patient's floor/unit and/or counseling patient: - Subjective Interval history: Patient feels somewhat better today. Denies any abdominal pain. Did have episodes of emesis last night and nasogastric tube was placed. Has not passed any flatus. No bowel movement yet. - Constitutional Vitals: Temp Pulse Resp BP Pulse Ox 98.5 F 83 16 159/73 93 03/06/18 11:41 03/06/18 11:41 03/06/18 11:41 03/06/18 11:41 03/06/18 11:41 General appearance: Present: A&O X 3, no acute distress, answers questions appropriately - ENT Additional comments: NG tube in place - Respiratory Respiratory exam: Present: CTAB. Absent: accessory muscle use, rales, rhonchi, wheezes - Cardiovascular Cardiovascular exam: Present: RRR, +S1, +S2. Absent: diastolic murmur, gallop, rubs, systolic murmur - GI/Abdominal GI/Abdominal exam: Present: diminished bowel sounds, soft, no peritoneal signs. Absent: distended, tenderness - Extremities Exam Extremities exam: Present: warm, radial pulses palpable and symmetrical. Absent : calf tenderness, cyanotic, pedal edema - Neurological Exam Neurological exam: Present: alert, oriented X3, no focal deficits. Absent: facial droop, speech deficit Internal Medicine: Result - Labs CBC & Chem 7: 03/06/18 04:49 03/05/18 19:32 Labs: Short CBC 03/06/18 Range/Units 04:49 WBC 16.4 H (4.3-11.1) K/mcL Hgb 11.2 L (11.5-15.4) g/dL Hct 33.6 L (35.3-44.9) % Plt Count 285 (140-400) K/mcL Neutrophils # 13.9 H (1.6-8.9) K/mcL Consult Discharge Plan - Plan Referrals: Bon Castellanos MD [Primary Care Provider] -
[2018-03-06] MEDS: *HR* Metoprolol 5 MG/5 ML VIAL IVP SCH (17:37)
[2018-03-07] MEDS: *HR* Metoprolol 5 MG/5 ML VIAL IVP SCH ×4 (01:21→17:14)
[2018-03-07 05:01] LABS: Basophils # 0.1 K/mcL (0.0-0.2); Basophils % 0.5 %; Eosinophils # 0.4 K/mcL (0.0-0.6); Eosinophils % 3.2 %; Hematocrit 32.9 % (35.3-44.9); Hemoglobin 10.2 g/dL (11.5-15.4); Immature Granulocytes % 0.4 % (0-4); Lymphocytes # 2.3 K/mcL (0.6-4.6); Lymphocytes % 20.9 %; Mean Corpuscular Hemoglobin 26.2 pg (28.0-33.3); Mean Corpuscular Volume 84.6 fL (83.0-100.0); Mean Platelet Volume 9.9 fL (9.4-12.4); Monocytes % 9.3 %; Neutrophils # 7.2 K/mcL (1.6-8.9); Platelet Count 244 K/mcL (140-400); Red Blood Count 3.89 M/mcL (3.82-4.97); Red Cell Distribution Width 16.2 % (11.5-14.5); Segmented Neutrophils % 65.7 %
[2018-03-07 05:20] LABS: BUN/Creatinine Ratio 28 (6-26); Blood Urea Nitrogen 23 mg/dL (8-23); Calcium 8.3 mg/dL (8.6-10.3); Carbon Dioxide 25 mEq/L (23-29); Chloride 110 mEq/L (98-107); Glucose 89 mg/dL (70-105); Osmolality,Calculated 299 (280-300); Potassium 3.3 mEq/L (3.5-5.1); Sodium 143 mEq/L (136-145); eGFR For African Americans > 60 (> 60); eGFR For Non-African Americans > 60 (> 60)
[2018-03-07] MEDS: Pantoprazole 40 MG VIAL IVP SCH (06:30)
[2018-03-07] MEDS: *HR* Heparin 5,000 UNIT/ML VIAL SQ SCH ×2 (06:38→17:14)
--- NOTE | 2018-03-07 07:12 | General Surgery Progress Note ---
<Gianluca Montana - Last Filed: 03/07/18 08:27> Date of Encounter: 03/07/18 Time of Encounter: 06:45 - Assessment and Plan (1) Small bowel obstruction Current Visit: Yes Status: Acute Initial presenting symptoms included abdominal discomfort, vomiting, bloating, and severe epigastric pain prompting arrival to the ED; CT demonstrated distinct transition point of SBO at previous anastomosis site. SBO problem being addressed conservatively with bowel rest/decompression. Patient has had ice chips and is tolerating as well. No recurrent nausea, vomiting, bloating, distention, or pain. Patient has passed flatus. Benign abdominal exam with the exception of hypoactive bowel sounds. Plan: - cont NPO with sparing ice chips - [id number] in AM with Barium - cont NGT on LIWS; removal pending results of SB-f/t in AM - continue to manage pain and nausea as needed - ambulate as tolerated; out of bed at least TID - recommend monitor and correct lytes while NPO - GI & DVT prophylaxis per primary team (2) History of necrotic bowel Current Visit: Yes Status: Acute PSH: Exploratory laparotomy performed in [place] [address] Barone addressing small bowel obstruction secondary to adhesions; adhesion lysis performed and necrotic segment of small bowel was resected with end-to-end anastomosis done at that time. (3) Functional constipation Current Visit: Yes Status: Acute Further recommendations to follow-up on resolution of acute small bowel obstruction. Subjective Narrative: NG tube placed yesterday with cumulative volume relieved on 03/06/2018 of 700mLs ; still in place on LIWS. Tolerating limited amount of ice chips with no symptomatic provocation. Patient has had no recurrent nausea, vomiting, or abdominal distention/bloating. No recurrence of pain. Patient has passed gas but has not had bowel movements yet. Afebrile overnight; all other vitals stable and within normal range with the exception of elevated blood pressures. Objective Vital Signs - Last 8 Hours Temp Pulse Resp BP Pulse Ox 03/07/18 06:45 98.5 F 65 15 170/70 93 03/07/18 04:43 98.5 F 75 14 170/76 93 03/06/18 23:34 98.2 F 85 15 166/84 94 Intake and Output 03/06/18 03/06/18 03/07/18 15:59 23:59 07:59 Intake Total 1000 / 1000 1240 / 1240 0 / 0 Output Total 300 / 300 700 / 700 900 / 900 Balance 700 / 700 540 / 540 -900 / -900 Intake: IV Fluids 1000 / 1000 1000 / 1000 0.9 % Sodium Chloride 1,000 ML 1000 / 1000 1000 / 1000 @ 100 mls/hr IVC .Q10H [facility] Rx#: [id number] Oral 0 / 0 240 / 240 0 / 0 Output: Urine 300 / 300 700 / 700 350 / 350 Gastric Drainage 550 / 550 Other: Meal NPO NPO Percent of Meal Consumed 0% 0% # Voids 1 # Bowel Movements 0 0 Weight 72.1 kg Blood Glucose* 107 92 87 VITAL SIGNS: Reviewed. See [facility] GENERAL: alert and comfortably supine. No acute distress. Answers questions appropriately. HEENT: PER, EOMi, oropharynx pink/moist CV: RRR, no murmurs or extra heart sounds, no JVD noted HOB at about 40deg RESPIRATORY: CTAB without wheezes, rales, or rhonchi ABD: hypoactive bowel sounds, soft, non-tender, no guarding, no distention/ rigidity EXTREMITY: grossly normal motor function, no pedal edema, peripheral pulses 2+ b /l NEUROLOGIC EXAM: AOx3, obeys commands, no speech deficits. PSYCHIATRIC: normal mood and affect SKIN: no gross lesions, rashes, or skin changes - Labs 03/07/18 04:28 03/07/18 04:28 Diabetes panel 03/07/18 Range/Units 04:28 Sodium 143 (136-145) mEq/L Potassium 3.3 L (3.5-5.1) mEq/L Chloride 110 H (98-107) mEq/L Carbon Dioxide 25 (23-29) mEq/L BUN 23 (8-23) mg/dL Creatinine 0.82 (0.60-1.20) mg/dL Glucose 89 (70-105) mg/dL Calcium 8.3 L (8.6-10.3) mg/dL Calcium panel 03/07/18 Range/Units 04:28 Calcium 8.3 L (8.6-10.3) mg/dL Pituitary panel 03/07/18 Range/Units 04:28 Sodium 143 (136-145) mEq/L Potassium 3.3 L (3.5-5.1) mEq/L Chloride 110 H (98-107) mEq/L Carbon Dioxide 25 (23-29) mEq/L BUN 23 (8-23) mg/dL Creatinine 0.82 (0.60-1.20) mg/dL Glucose 89 (70-105) mg/dL Calcium 8.3 L (8.6-10.3) mg/dL Adrenal panel 03/07/18 Range/Units 04:28 Sodium 143 (136-145) mEq/L Potassium 3.3 L (3.5-5.1) mEq/L Chloride 110 H (98-107) mEq/L Carbon Dioxide 25 (23-29) mEq/L BUN 23 (8-23) mg/dL Creatinine 0.82 (0.60-1.20) mg/dL Glucose 89 (70-105) mg/dL Calcium 8.3 L (8.6-10.3) mg/dL Consult Discharge Plan - Plan Referrals: Bon Castellanos MD [Primary Care Provider] - <Stephane Barone - Last Filed: 03/07/18 13:26> Date of Encounter: 03/07/18 Objective Vital Signs - Last 8 Hours Temp Pulse Resp BP Pulse Ox 03/07/18 10:38 15 95 03/07/18 10:22 97.9 F 72 15 171/73 95 03/07/18 06:45 98.5 F 65 15 170/70 93 Intake and Output 03/06/18 03/07/18 03/07/18 23:59 07:59 15:59 Intake Total 1240 / 1240 0 / 0 0 / 0 Output Total 700 / 700 900 / 900 500 / 500 Balance 540 / 540 -900 / -900 -500 / -500 Intake: IV Fluids 1000 / 1000 0.9 % Sodium Chloride 1,000 ML 1000 / 1000 @ 100 mls/hr IVC .Q10H [facility] Rx#: [id number] Oral 240 / 240 0 / 0 0 / 0 Output: Urine 700 / 700 350 / 350 300 / 300 Gastric Drainage 550 / 550 200 / 200 Other: Meal NPO NPO Percent of Meal Consumed 0% 0% # Voids 1 # Bowel Movements 0 0 Weight 72.1 kg Blood Glucose* 92 87 88 - Labs 03/07/18 04:28 03/07/18 04:28 Diabetes panel 03/07/18 Range/Units 04:28 Sodium 143 (136-145) mEq/L Potassium 3.3 L (3.5-5.1) mEq/L Chloride 110 H (98-107) mEq/L Carbon Dioxide 25 (23-29) mEq/L BUN 23 (8-23) mg/dL Creatinine 0.82 (0.60-1.20) mg/dL Glucose 89 (70-105) mg/dL Calcium 8.3 L (8.6-10.3) mg/dL Calcium panel 03/07/18 Range/Units 04:28 Calcium 8.3 L (8.6-10.3) mg/dL Pituitary panel 03/07/18 Range/Units 04:28 Sodium 143 (136-145) mEq/L Potassium 3.3 L (3.5-5.1) mEq/L Chloride 110 H (98-107) mEq/L Carbon Dioxide 25 (23-29) mEq/L BUN 23 (8-23) mg/dL Creatinine 0.82 (0.60-1.20) mg/dL Glucose 89 (70-105) mg/dL Calcium 8.3 L (8.6-10.3) mg/dL Adrenal panel 03/07/18 Range/Units 04:28 Sodium 143 (136-145) mEq/L Potassium 3.3 L (3.5-5.1) mEq/L Chloride 110 H (98-107) mEq/L Carbon Dioxide 25 (23-29) mEq/L BUN 23 (8-23) mg/dL Creatinine 0.82 (0.60-1.20) mg/dL Glucose 89 (70-105) mg/dL Calcium 8.3 L (8.6-10.3) mg/dL - Attending Attestation I examined this patient and my medical decision-making was reviewed with the Resident Physician. I agree with the documented findings, disposition and treatment plan as described except to the extent set forth below. The patient is seen and evaluated on morning rounds with the resident. Her abdominal pain is gone area she had 500 mL of NG tube drainage overnight. We will continue NG tube drainage today. If she does not demonstrate bowel activity by tomorrow we will obtain small bowel follow-through. Stephane Barone MD FACS
[2018-03-07 07:28] LABS: Magnesium 1.9 mg/dL (1.6-2.6)
[2018-03-07] MEDS ORDERED: Ketorolac 30 MG/ML VIAL IVP ONE ×2 (10:20→17:10)
[2018-03-07] MEDS ORDERED: Saliva Stimulant 100ml BOTTLE PO PRN (10:22)
[2018-03-07] MEDS: Budesonide/Formoterol 160/4.5 MDI IH SCH ×2 (10:36→19:53)
[2018-03-07] MEDS: Fluticasone Propionate Nasal 50 MCG/SPRAY BOTTLE NS SCH ×2 (10:53→20:09)
[2018-03-07] MEDS: BENZOCAINE/MENTHOL 1 LOZENGE (BAG OF 6) MM PRN ×2 (11:00→13:15)
[2018-03-07] MEDS ORDERED: Potassium Chloride 30 MEQ, Lidocaine 1% 2 ML in D5% in Water 500 ML IVPB ONE (11:29)
--- NOTE | 2018-03-07 14:24 | Internal Med Progress Note ---
Date of Encounter: 03/07/18 Time of Encounter: 14:22 - Assessment and plan (1) Small bowel obstruction, partial Current Visit: Yes Status: Acute Assessment and plan: Continues to be symptomatic. Although improving. Surgery following. Continue to keep patient nothing by mouth. Nasogastric tube to low intermittent suction. Monitor vital signs closely. - Continue IV hydration. - SBFT for tomorrow Moderate risk for complications. (2) Hypertension Current Visit: Yes Status: Chronic Assessment and plan: Blood pressure is elevated. SBP runnings 170s. Patient also takes lisinopril at home. As she is nothing by mouth is not doing this medication. We will place him on Lopressor IV every 6 hours scheduled, and giving IV hydralazine as a prn. Qualifiers: Hypertension type: essential hypertension Qualified Code(s): I10 - Essential (primary) hypertension (3) Asthma Current Visit: Yes Status: Chronic Assessment and plan: Not in acute exacerbation. Prn bronchodilators Qualifiers: Qualified Code(s): J45.909 - Unspecified asthma, uncomplicated (4) DVT prophylaxis Current Visit: Yes Status: Acute Assessment and plan: On subcutaneous heparin - Time Spent With Patient Total time spent is greater than 50% in coordination of care (as documented) at patient's floor/unit and/or counseling patient: - Subjective Interval history: Patient denies abdominal pain, denies N/V. Has NG tube in. No complaints. - Constitutional Vitals: Temp Pulse Resp BP Pulse Ox 98.2 F 67 15 154/78 92 03/07/18 14:02 03/07/18 14:02 03/07/18 14:02 03/07/18 14:02 03/07/18 14:02 General appearance: Present: A&O X 3, no acute distress, answers questions appropriately Exam: - Respiratory Respiratory exam: Present: CTAB. Absent: accessory muscle use, rales, rhonchi, wheezes - Cardiovascular Cardiovascular exam: Present: RRR, +S1, +S2. Absent: diastolic murmur, gallop, rubs, systolic murmur - GI/Abdominal GI/Abdominal exam: Present: diminished bowel sounds, soft, no peritoneal signs. Absent: distended, tenderness - Extremities Exam Extremities exam: Present: warm, radial pulses palpable and symmetrical. Absent : calf tenderness, cyanotic, pedal edema NG tube in place, Internal Medicine: Result - Labs CBC & Chem 7: 03/07/18 04:28 03/07/18 04:28 Labs: Short CBC 03/07/18 Range/Units 04:28 WBC 10.9 (4.3-11.1) K/mcL Hgb 10.2 L (11.5-15.4) g/dL Hct 32.9 L (35.3-44.9) % Plt Count 244 (140-400) K/mcL Neutrophils # 7.2 (1.6-8.9) K/mcL BMP 03/07/18 04:28 Sodium 143 Potassium 3.3 L Chloride 110 H Carbon Dioxide 25 BUN 23 Creatinine 0.82 Glucose 89 Calcium 8.3 L Consult Discharge Plan - Plan Referrals: Bon Castellanos MD [Primary Care Provider] -
[2018-03-07] MEDS: 0.9 % Sodium Chloride 1,000 ML IVC SCH ×2 (17:14→20:08)
[2018-03-08] MEDS: *HR* Metoprolol 5 MG/5 ML VIAL IVP SCH ×5 (01:04→23:59)
[2018-03-08] MEDS: 0.9 % Sodium Chloride 1,000 ML IVC SCH ×2 (03:30→16:08)
[2018-03-08 05:47] LABS: Basophils # 0.1 K/mcL (0.0-0.2); Basophils % 0.6 %; Eosinophils # 0.5 K/mcL (0.0-0.6); Eosinophils % 4.2 %; Hematocrit 30.2 % (35.3-44.9); Hemoglobin 9.6 g/dL (11.5-15.4); Immature Granulocytes % 0.7 % (0-4); Lymphocytes # 2.1 K/mcL (0.6-4.6); Lymphocytes % 18.2 %; Mean Corpuscular HGB Conc 31.8 g/dL (31.6-35.5); Mean Corpuscular Hemoglobin 27.3 pg (28.0-33.3); Mean Corpuscular Volume 85.8 fL (83.0-100.0); Mean Platelet Volume 9.5 fL (9.4-12.4); Monocytes # 0.9 K/mcL (0.0-1.3); Neutrophils # 7.7 K/mcL (1.6-8.9); Platelet Count 220 K/mcL (140-400); Red Blood Count 3.52 M/mcL (3.82-4.97); Red Cell Distribution Width 16.1 % (11.5-14.5); Segmented Neutrophils % 68.3 %
[2018-03-08 06:05] LABS: BUN/Creatinine Ratio 29 (6-26); Blood Urea Nitrogen 23 mg/dL (8-23); Calcium 8.2 mg/dL (8.6-10.3); Carbon Dioxide 22 mEq/L (23-29); Chloride 114 mEq/L (98-107); Glucose 87 mg/dL (70-105); Magnesium 1.8 mg/dL (1.6-2.6); Osmolality,Calculated 299 (280-300); Phosphorous 1.8 mg/dL (2.7-4.5); Potassium 3.5 mEq/L (3.5-5.1); Sodium 143 mEq/L (136-145); eGFR For African Americans > 60 (> 60); eGFR For Non-African Americans > 60 (> 60)
--- NOTE | 2018-03-08 06:34 | General Surgery Progress Note ---
<Gianluca Montana - Last Filed: 03/08/18 07:34> Date of Encounter: 03/08/18 Time of Encounter: 06:32 - Assessment and Plan (1) Small bowel obstruction Current Visit: Yes Status: Acute Initial presenting symptoms included abdominal discomfort, vomiting, bloating, and severe epigastric pain prompting arrival to the ED; CT demonstrated distinct transition point of SBO at previous anastomosis site. SBO problem being addressed conservatively with bowel rest/decompression. Patient has had ice chips and is tolerating as well. No recurrent nausea, vomiting, bloating, distention, or pain. Patient has passed flatus. Benign abdominal exam with the exception of hypoactive bowel sounds. Plan: - [id number] pending; ideal transit time to terminal ileum / colon <4hrs - if negative, will remove NG tube and advance diet to clear liquids - continue to manage pain and nausea as needed - ambulate as tolerated; out of bed at least TID - recommend monitor and correct lytes while NPO - GI & DVT prophylaxis per primary team (2) History of necrotic bowel Current Visit: Yes Status: Acute PSH: Exploratory laparotomy performed in [place] [address] Barone addressing small bowel obstruction secondary to adhesions; adhesion lysis performed and necrotic segment of small bowel was resected with end-to-end anastomosis done at that time. (3) Functional constipation Current Visit: Yes Status: Acute Further recommendations to follow-up on resolution of acute small bowel obstruction. Subjective Narrative: No changes overnight. Afebrile overnight. Continues to have flatus, but no bowel movements. Denies nausea, vomiting, bloating, or distention. Does have appetite. Objective Vital Signs - Last 8 Hours Temp Pulse Resp BP Pulse Ox 03/08/18 04:14 99.0 F 72 14 155/72 93 03/08/18 00:31 97.7 F 69 16 159/72 96 Intake and Output 03/07/18 03/07/18 03/08/18 15:59 23:59 07:59 Intake Total 0 / 0 617 / 617 1000 / 1000 Output Total 500 / 500 700 / 700 800 / 800 Balance -500 / -500 -83 / -83 200 / 200 Intake: IV Fluids 617 / 617 1000 / 1000 0.9 % Sodium Chloride 1,000 ML 1000 / 1000 @ 100 mls/hr IVC .Q10H [facility] Rx#: [id number] Potassium Chloride 10 mEq/100mL 100 / 100 10 meq In 100 ml @ 100 mls/hr IVPB Q1H [facility] Rx#:[id number] KCl 30 MEQ Xylocaine 2 ML In 517 / 517 Dextrose 5% 500 ML @ 130.5 mls/ hr IVPB ONCE ONE Rx#:[id number] Oral 0 / 0 0 / 0 0 / 0 Output: Urine 300 / 300 700 / 700 300 / 300 Gastric Drainage 200 / 200 500 / 500 Other: Meal NPO Percent of Meal Consumed 0% Weight 72 kg Blood Glucose* 88 87 80 Patient Weight 03/08/18 23:59 Weight 72 kg VITAL SIGNS: Reviewed. See [facility] GENERAL: alert and comfortably supine. No acute distress. Answers questions appropriately. HEENT: PER, EOMi, oropharynx pink/moist CV: RRR, no murmurs or extra heart sounds, no JVD noted RESPIRATORY: CTAB without wheezes, rales, or rhonchi ABD: bowel sounds present but hypoactive, soft, non-tender, no guarding, no distention/rigidity EXTREMITY: grossly normal motor function, no pedal edema, peripheral pulses 2+ b /l NEUROLOGIC EXAM: AOx3, obeys commands, no speech deficits. PSYCHIATRIC: normal mood and affect SKIN: no gross lesions, rashes, or skin changes - Labs 03/08/18 05:25 03/08/18 05:25 Diabetes panel 03/07/18 03/08/18 Range/Units 04:28 05:25 Sodium 143 143 (136-145) mEq/L Potassium 3.3 L 3.5 (3.5-5.1) mEq/L Chloride 110 H 114 H (98-107) mEq/L Carbon Dioxide 25 22 L (23-29) mEq/L BUN 23 23 (8-23) mg/dL Creatinine 0.82 0.79 (0.60-1.20) mg/dL Glucose 89 87 (70-105) mg/dL Calcium 8.3 L 8.2 L (8.6-10.3) mg/dL Calcium panel 03/07/18 03/08/18 Range/Units 04:28 05:25 Calcium 8.3 L 8.2 L (8.6-10.3) mg/dL Phosphorus 1.8 L (2.7-4.5) mg/dL Pituitary panel 03/07/18 03/08/18 Range/Units 04:28 05:25 Sodium 143 143 (136-145) mEq/L Potassium 3.3 L 3.5 (3.5-5.1) mEq/L Chloride 110 H 114 H (98-107) mEq/L Carbon Dioxide 25 22 L (23-29) mEq/L BUN 23 23 (8-23) mg/dL Creatinine 0.82 0.79 (0.60-1.20) mg/dL Glucose 89 87 (70-105) mg/dL Calcium 8.3 L 8.2 L (8.6-10.3) mg/dL Adrenal panel 03/07/18 03/08/18 Range/Units 04:28 05:25 Sodium 143 143 (136-145) mEq/L Potassium 3.3 L 3.5 (3.5-5.1) mEq/L Chloride 110 H 114 H (98-107) mEq/L Carbon Dioxide 25 22 L (23-29) mEq/L BUN 23 23 (8-23) mg/dL Creatinine 0.82 0.79 (0.60-1.20) mg/dL Glucose 89 87 (70-105) mg/dL Calcium 8.3 L 8.2 L (8.6-10.3) mg/dL Consult Discharge Plan - Plan Referrals: Bon Castellanos MD [Primary Care Provider] - <Stephane Barone - Last Filed: 03/08/18 15:06> Date of Encounter: 03/08/18 Objective Vital Signs - Last 8 Hours Temp Pulse Resp BP Pulse Ox 03/08/18 14:26 98.3 F 65 15 161/71 96 03/08/18 13:39 62 145/77 03/08/18 10:57 98.4 F 76 16 172/76 94 03/08/18 07:43 14 93 Intake and Output 03/07/18 03/08/18 03/08/18 23:59 07:59 15:59 Intake Total 617 / 617 1000 / 1000 0 / 0 Output Total 700 / 700 800 / 800 1750 / 1750 Balance -83 / -83 200 / 200 -1750 / -1750 Intake: IV Fluids 617 / 617 1000 / 1000 0.9 % Sodium Chloride 1,000 ML 1000 / 1000 @ 100 mls/hr IVC .Q10H [facility] Rx#: [id number] Potassium Chloride 10 mEq/100mL 100 / 100 10 meq In 100 ml @ 100 mls/hr IVPB Q1H [facility] Rx#:[id number] KCl 30 MEQ Xylocaine 2 ML In 517 / 517 Dextrose 5% 500 ML @ 130.5 mls/ hr IVPB ONCE ONE Rx#:[id number] Oral 0 / 0 0 / 0 0 / 0 Output: Urine 700 / 700 300 / 300 1400 / 1400 Gastric Drainage 500 / 500 350 / 350 Other: Meal Lunch Percent of Meal Consumed 0% Weight 72 kg Blood Glucose* 87 80 80 Patient Weight 03/08/18 23:59 Weight 72 kg - Labs 03/08/18 05:25 03/08/18 05:25 Diabetes panel 03/08/18 Range/Units 05:25 Sodium 143 (136-145) mEq/L Potassium 3.5 (3.5-5.1) mEq/L Chloride 114 H (98-107) mEq/L Carbon Dioxide 22 L (23-29) mEq/L BUN 23 (8-23) mg/dL Creatinine 0.79 (0.60-1.20) mg/dL Glucose 87 (70-105) mg/dL Calcium 8.2 L (8.6-10.3) mg/dL Calcium panel 03/08/18 Range/Units 05:25 Calcium 8.2 L (8.6-10.3) mg/dL Phosphorus 1.8 L (2.7-4.5) mg/dL Pituitary panel 03/08/18 Range/Units 05:25 Sodium 143 (136-145) mEq/L Potassium 3.5 (3.5-5.1) mEq/L Chloride 114 H (98-107) mEq/L Carbon Dioxide 22 L (23-29) mEq/L BUN 23 (8-23) mg/dL Creatinine 0.79 (0.60-1.20) mg/dL Glucose 87 (70-105) mg/dL Calcium 8.2 L (8.6-10.3) mg/dL Adrenal panel 03/08/18 Range/Units 05:25 Sodium 143 (136-145) mEq/L Potassium 3.5 (3.5-5.1) mEq/L Chloride 114 H (98-107) mEq/L Carbon Dioxide 22 L (23-29) mEq/L BUN 23 (8-23) mg/dL Creatinine 0.79 (0.60-1.20) mg/dL Glucose 87 (70-105) mg/dL Calcium 8.2 L (8.6-10.3) mg/dL - Attending Attestation I examined this patient and my medical decision-making was reviewed with the Resident Physician. I agree with the documented findings, disposition and treatment plan as described except to the extent set forth below. The patient is seen and evaluated on morning rounds with resident. We will order small bowel follow-through today. If there is normal small bowel transit time the nasogastric tube will be removed Stephane Barone MD FACS
[2018-03-08] MEDS: Pantoprazole 40 MG VIAL IVP SCH (06:54)
[2018-03-08] MEDS: *HR* Heparin 5,000 UNIT/ML VIAL SQ SCH ×2 (06:54→18:13)
[2018-03-08] MEDS: Budesonide/Formoterol 160/4.5 MDI IH SCH ×2 (07:40→22:01)
[2018-03-08] MEDS: Fluticasone Propionate Nasal 50 MCG/SPRAY BOTTLE NS SCH ×2 (08:29→20:16)
[2018-03-08] MEDS ORDERED: Ketorolac 30 MG/ML VIAL IVP ONE (15:03)
--- NOTE | 2018-03-08 16:22 | Internal Med Progress Note ---
Date of Encounter: 03/08/18 Time of Encounter: 16:20 - Assessment and plan (1) Small bowel obstruction, partial Current Visit: Yes Status: Acute Assessment and plan: Currently with NGT Management per Surgery. Moderate risk for complications. (2) Hypertension Current Visit: Yes Status: Chronic Assessment and plan: Blood pressure is elevated. SBP runnings 170s. Patient also takes lisinopril at home. As she is nothing by mouth is not doing this medication. Continue scheduled lopressor IV qH and Hydralazine IV prn. Qualifiers: Hypertension type: essential hypertension Qualified Code(s): I10 - Essential (primary) hypertension (3) Asthma Current Visit: Yes Status: Chronic Assessment and plan: Not in acute exacerbation. Prn bronchodilators Qualifiers: Qualified Code(s): J45.909 - Unspecified asthma, uncomplicated (4) DVT prophylaxis Current Visit: Yes Status: Acute Assessment and plan: On subcutaneous heparin - Time Spent With Patient Total time spent is greater than 50% in coordination of care (as documented) at patient's floor/unit and/or counseling patient: - Subjective Interval history: Patient denies abdominal pain, denies N/V. NG tube in place - Constitutional Vitals: Temp Pulse Resp BP Pulse Ox 98.3 F 65 15 161/71 96 03/08/18 14:26 03/08/18 14:26 03/08/18 14:26 03/08/18 14:26 03/08/18 14:26 General appearance: Present: A&O X 3, no acute distress, answers questions appropriately - Head Head exam: Present: atraumatic, normocephalic - Eye Eye exam: Present: PERRL, conjuntiva pink, sclera anicteric Pupils: Present: PERRL - Neck Neck exam general surgery: Present: supple, trachea midline. Absent: lymphadenopathy - Respiratory Respiratory exam: Present: CTAB. Absent: accessory muscle use, rales, rhonchi, wheezes - Cardiovascular Cardiovascular exam: Present: RRR, +S1, +S2. Absent: diastolic murmur, gallop, rubs, systolic murmur - GI/Abdominal GI/Abdominal exam: Present: normal bowel sounds, soft, no peritoneal signs. Absent: distended, tenderness - Extremities Exam Extremities exam: Present: warm, radial pulses palpable and symmetrical. Absent : calf tenderness, cyanotic, pedal edema - Neurological Exam Neurological exam: Present: CN II-XII intact, oriented X3, no focal deficits. Absent: pronater drift, facial droop, speech deficit - Skin Skin exam: Present: dry, intact - Other Additional findings: NG tube in place Internal Medicine: Result - Labs CBC & Chem 7: 03/08/18 05:25 03/08/18 05:25 Labs: Short CBC 03/08/18 Range/Units 05:25 WBC 11.3 H (4.3-11.1) K/mcL Hgb 9.6 L (11.5-15.4) g/dL Hct 30.2 L (35.3-44.9) % Plt Count 220 (140-400) K/mcL Neutrophils # 7.7 (1.6-8.9) K/mcL BMP 03/08/18 05:25 Sodium 143 Potassium 3.5 Chloride 114 H Carbon Dioxide 22 L BUN 23 Creatinine 0.79 Glucose 87 Calcium 8.2 L - Impressions Impressions Small Bowel X-Ray 03/08/18 06:00 IMPRESSION: 1. Few prominent loops of small bowel in the left hemiabdomen measuring up to 3 cm in diameter may represent mild ileus. 2. Otherwise, unremarkable small bowel follow-through. D/ / Braden Álvarez MD / Braden Álvarez MD Interpreting Provider: Braden Álvarez MD Consult Discharge Plan - Plan Referrals: Bon Castellanos MD [Primary Care Provider] -
[2018-03-09] MEDS: 0.9 % Sodium Chloride 1,000 ML IVC SCH (02:47)
[2018-03-09] MEDS: Pantoprazole 40 MG VIAL IVP SCH (06:17)
[2018-03-09] MEDS: *HR* Metoprolol 5 MG/5 ML VIAL IVP SCH ×2 (06:17→12:39)
[2018-03-09] MEDS: *HR* Heparin 5,000 UNIT/ML VIAL SQ SCH (06:17)
--- NOTE | 2018-03-09 07:02 | General Surgery Progress Note ---
<Gianluca Montana - Last Filed: 03/09/18 07:17> Date of Encounter: 03/09/18 Time of Encounter: 07:00 - Assessment and Plan (1) Small bowel obstruction Status: Acute Initial presenting symptoms included abdominal discomfort, vomiting, bloating, and severe epigastric pain prompting arrival to the ED; CT demonstrated distinct transition point of SBO at previous anastomosis site. SBO symptomatically resolved with no ongoing signs of obstruction SB follow through was normal with <2 hour transit time Removed NG tube and advanced to clear liquids 03/09/18; tolerated well. No recurrent nausea, vomiting, bloating, distention, or pain. Continues to pass flatus with no BM. Completely normal abdominal exam today. Plan: - Advance diet to regular - clear from surgical perspective for discharge this afternoon if tolerates reg diet with no recurrent abd pain, nausea, or vomiting - given single dose of MoM conc 10mL - continue to manage pain and nausea as needed - ambulate as tolerated; out of bed at least TID - recommend monitor and correct lytes while NPO; defer supplementation to primary team (2) History of necrotic bowel Status: Acute PSH: Exploratory laparotomy performed in February [address] Barone addressing small bowel obstruction secondary to adhesions; adhesion lysis performed and necrotic segment of small bowel was resected with end-to-end anastomosis done at that time. (3) Functional constipation Status: Acute Pt should continue usual home regimen for constipation; no recommended changes upon discharge. Subjective Narrative: Tolerated clear liquids with no recurrence of symptoms; denies abdominal pain, nausea, vomiting, bloating, or distention. Has continued to have flatus, but no BM as of yet. States is chronically constipated. Afebrile and otherwise stable overnight. Pt expresses no concerns at this time. Objective Vital Signs - Last 8 Hours Temp Pulse Resp BP Pulse Ox 03/09/18 05:44 98.8 F 78 16 157/72 95 03/08/18 23:18 98.6 F 69 17 153/75 94 Intake and Output 03/08/18 03/08/18 03/09/18 15:59 23:59 07:59 Intake Total 0 / 0 1320 / 1320 1000 / 1000 Output Total 1750 / 1750 800 / 800 500 / 500 Balance -1750 / -1750 520 / 520 500 / 500 Intake: IV Fluids 1260 / 1260 1000 / 1000 0.9 % Sodium Chloride 1,000 ML 1000 / 1000 1000 / 1000 @ 100 mls/hr IVC .Q10H JODEE Rx#: [id number] Sodium Phosphate 30 MMOL In 0.9 260 / 260 % Sodium Chloride 250 ML @ 42 mls/hr IVPB ONCE ONE Rx#: [id number] Oral 0 / 0 60 / 60 Output: Urine 1400 / 1400 400 / 400 500 / 500 Gastric Drainage 350 / 350 400 / 400 Other: Meal Lunch Percent of Meal Consumed 0% # Voids 1 Weight 71.6 kg Blood Glucose* 80 Patient Weight 03/09/18 23:59 Weight 71.6 kg VITAL SIGNS: Reviewed. See [facility] GENERAL: comfortably supine, no acute distress HEENT: PER, EOMi, oropharynx pink/moist CV: RRR, no murmurs or gallops RESPIRATORY: CTAB without wheezes, rales, or rhonchi ABD: grossly normal, normoactive, soft, non-tender, no rebound/guarding/rigidity , no peritoneal signs EXTREMITY: grossly normal motor function, no pedal edema, peripheral pulses 2+ b /l NEUROLOGIC EXAM: AOx3, obeys commands, no speech deficits. PSYCHIATRIC: normal mood and affect SKIN: no gross lesions, rashes, or skin changes - Labs 03/08/18 05:25 03/08/18 05:25 Consult Discharge Plan - Plan Referrals: Virgen Mari MD [Partnered Physician] - 03/15/18 12:00 pm <Stephane Barone - Last Filed: 03/09/18 18:30> Date of Encounter: 03/09/18 Objective Vital Signs - Last 8 Hours Temp Pulse Resp BP Pulse Ox 03/09/18 12:38 98.6 F 69 16 173/70 97 Intake and Output 03/09/18 03/09/18 03/09/18 07:59 15:59 23:59 Intake Total 1120 / 1120 1720 / 1720 Output Total 1000 / 1000 Balance 120 / 120 1720 / 1720 Intake: IV Fluids 1000 / 1000 1000 / 1000 0.9 % Sodium Chloride 1,000 ML 1000 / 1000 1000 / 1000 @ 100 mls/hr IVC .Q10H JODEE Rx#: [id number] Oral 120 / 120 720 / 720 Output: Urine 1000 / 1000 Other: Meal Lunch Percent of Meal Consumed 85% Stool Size Moderate Stool Consistency loose # Bowel Movements 1 Weight 71.6 kg Patient Weight 03/09/18 23:59 Weight 71.6 kg - Labs 03/09/18 07:55 03/09/18 14:35 Diabetes panel 03/09/18 03/09/18 Range/Units 07:55 14:35 Sodium 142 (136-145) mEq/L Potassium 2.9 L 3.3 L (3.5-5.1) mEq/L Chloride 111 H (98-107) mEq/L Carbon Dioxide 21 L (23-29) mEq/L BUN 16 (8-23) mg/dL Creatinine 0.74 (0.60-1.20) mg/dL Glucose 94 (70-105) mg/dL Calcium 8.2 L (8.6-10.3) mg/dL Calcium panel 03/09/18 Range/Units 07:55 Calcium 8.2 L (8.6-10.3) mg/dL Phosphorus 2.1 L (2.7-4.5) mg/dL Pituitary panel 03/09/18 03/09/18 Range/Units 07:55 14:35 Sodium 142 (136-145) mEq/L Potassium 2.9 L 3.3 L (3.5-5.1) mEq/L Chloride 111 H (98-107) mEq/L Carbon Dioxide 21 L (23-29) mEq/L BUN 16 (8-23) mg/dL Creatinine 0.74 (0.60-1.20) mg/dL Glucose 94 (70-105) mg/dL Calcium 8.2 L (8.6-10.3) mg/dL Adrenal panel 03/09/18 03/09/18 Range/Units 07:55 14:35 Sodium 142 (136-145) mEq/L Potassium 2.9 L 3.3 L (3.5-5.1) mEq/L Chloride 111 H (98-107) mEq/L Carbon Dioxide 21 L (23-29) mEq/L BUN 16 (8-23) mg/dL Creatinine 0.74 (0.60-1.20) mg/dL Glucose 94 (70-105) mg/dL Calcium 8.2 L (8.6-10.3) mg/dL - Attending Attestation I examined this patient and my medical decision-making was reviewed with the Resident Physician. I agree with the documented findings, disposition and treatment plan as described except to the extent set forth below. The patient is seen and evaluated on morning rounds with the resident. She has no nausea or vomiting. She is passing gas and bowel movement. Small bowel follow-through demonstrated no evidence of bowel obstruction. Advance diet. Surgery will sign off. Stephane Barone MD FACS
[2018-03-09] MEDS ORDERED: MOM Conc 10 ML UD.LIQ PO ONE (07:15)
[2018-03-09] MEDS: Budesonide/Formoterol 160/4.5 MDI IH SCH (07:27)
[2018-03-09] MEDS: Fluticasone Propionate Nasal 50 MCG/SPRAY BOTTLE NS SCH (07:40)
[2018-03-09 08:18] LABS: Basophils # 0.1 K/mcL (0.0-0.2); Basophils % 0.4 %; Eosinophils # 0.5 K/mcL (0.0-0.6); Eosinophils % 3.8 %; Hematocrit 33.5 % (35.3-44.9); Hemoglobin 10.5 g/dL (11.5-15.4); Immature Granulocytes % 0.5 % (0-4); Lymphocytes # 2.6 K/mcL (0.6-4.6); Lymphocytes % 21.1 %; Mean Corpuscular HGB Conc 31.3 g/dL (31.6-35.5); Mean Corpuscular Hemoglobin 26.9 pg (28.0-33.3); Mean Corpuscular Volume 85.9 fL (83.0-100.0); Mean Platelet Volume 9.7 fL (9.4-12.4); Monocytes # 0.9 K/mcL (0.0-1.3); Monocytes % 7.3 %; Neutrophils # 8.2 K/mcL (1.6-8.9); Platelet Count 228 K/mcL (140-400); Red Cell Distribution Width 16.1 % (11.5-14.5); Segmented Neutrophils % 66.9 %
[2018-03-09 10:15] LABS: BUN/Creatinine Ratio 22 (6-26); Blood Urea Nitrogen 16 mg/dL (8-23); Calcium 8.2 mg/dL (8.6-10.3); Carbon Dioxide 21 mEq/L (23-29); Chloride 111 mEq/L (98-107); Glucose 94 mg/dL (70-105); Magnesium 1.7 mg/dL (1.6-2.6); Osmolality,Calculated 295 (280-300); Phosphorous 2.1 mg/dL (2.7-4.5); Potassium 2.9 mEq/L (3.5-5.1); Sodium 142 mEq/L (136-145); eGFR For African Americans > 60 (> 60); eGFR For Non-African Americans > 60 (> 60)
[2018-03-09] MEDS ORDERED: Magnesium Oxide 400 MG TABLET PO ONE (11:00)
[2018-03-09 12:39] VITALS: BP 173/70
--- NOTE | 2018-03-09 15:33 | Discharge Summary ---
- NOTES TO OUTPATIENT PROVIDER Notes to Outpatient Provider: Follow-up with Surgery as prescribed. Follow-up potassium and phosphorus levels; was low after diet was being advanced. Orders not resulted at time of discharge: Pending orders 03/10/18 04:00 Complete Blood Count [HEME] AM 0400 Date of Encounter: 03/09/18 Time of Encounter: 15:30 - Discharge Diagnosis (1) Small bowel obstruction, partial Priority: Primary Status: Acute (2) Hypertension Priority: Secondary Status: Chronic Qualifiers: Hypertension type: essential hypertension Qualified Code(s): I10 - Essential (primary) hypertension (3) Asthma Priority: Secondary Status: Chronic Qualifiers: Qualified Code(s): J45.909 - Unspecified asthma, uncomplicated (4) DVT prophylaxis Priority: Secondary Status: Acute Hospital course: Ms. Chilel is a 78 year old female with PMHx hypertension, invasive SCC of left medial foot, asthma, s/p hysterectomy presents to ED with abdominal pain and diarrhea for 1 day. Abdominal pain in the mid abdomen continued this afternoon, and she decided to come to ED. She reports that she has history of SBO 2 years ago and this is similar, but not as severe. Has been unable to tolerate PO intake due to nausea. She had CT of abdomen done that showed partial SBO at ileum. She was placed NPO, surgery was consulted. Patient had NG tube placed because symptoms did not seem to improve. Small bowel follow through was done and normal. Patient was able to have NG removed and advanced her diet without issue. She was discharged home in stable condition. - Time Spent with Patient Total time spent providing and/or coordinating discharge services: - Discharge Medications Home Medications: Acetaminophen w/Cod 300-30 mg [Tylenol w/Codeine #3] 1 each PO Q4HR PRN [History] Albuterol Neb [Proventil Neb] 2.5 mg IH Q4HR PRN 05/25/16 [History] Albuterol Sulfate [Albuterol Inhaler] 2 puff IH Q4HR PRN 05/25/16 [History] Aspirin Enteric Coated [Aspirin EC] 81 mg PO DAILY 05/25/16 [History] Atorvastatin Calcium [Lipitor] 40 mg PO DAILY 05/25/16 [History] Fluticasone Propionate Nasal [Flonase] 2 spr NS BID 05/25/16 [History] Fluticasone/Vilanterol [Breo Ellipta 100-25 Mcg INH] 1 puff IH DAILY 03/06/18 [ History] Lisinopril [Zestril] 10 mg PO DAILY 03/06/18 [History] Allergies/Adverse Reactions: 3 Allergy/AdvReac Type Severity Reaction Status Date / Time No Known Allergies Allergy Verified 03/05/18 18:59 Date of admission: 03/06/18 00:58 Primary care physician: Bon Castellanos Discharging clinician: Navjot Garibay - Constitutional Vitals: Temp Pulse Resp BP Pulse Ox 98.6 F 69 16 173/70 97 03/09/18 12:38 03/09/18 12:38 03/09/18 12:38 03/09/18 12:38 03/09/18 12:38 General appearance: Present: A&O X 3, no acute distress, answers questions appropriately - Head Head exam: Present: atraumatic, normocephalic - Eye Eye exam: Present: PERRL, conjuntiva pink, sclera anicteric Pupils: Present: PERRL - Neck Neck exam general surgery: Present: supple, trachea midline. Absent: lymphadenopathy - Respiratory Respiratory exam: Present: CTAB. Absent: accessory muscle use, rales, rhonchi, wheezes - Cardiovascular Cardiovascular exam: Present: RRR, +S1, +S2. Absent: diastolic murmur, gallop, rubs, systolic murmur - GI/Abdominal GI/Abdominal exam: Present: normal bowel sounds, soft, no peritoneal signs. Absent: distended, tenderness - Extremities Exam Extremities exam: Present: warm, radial pulses palpable and symmetrical. Absent : calf tenderness, cyanotic, pedal edema - Neurological Exam Neurological exam: Present: CN II-XII intact, oriented X3, no focal deficits. Absent: pronater drift, facial droop, speech deficit - Skin Skin exam: Present: dry, intact - Patient Status Disposition: Home, Self-Care Condition: Fair Functional capacity at discharge: independent ambulation Overall status at discharge: patient is back to baseline - Discharge Instructions Follow Up With: Bon Castellanos MD [Primary Care Provider] - - Diet and Activity Activity: increase activity as tolerated Diet: advance to your usual diet
== END 2018-03-09 17:45 | disposition home or self-care (01) | DRG 390 ==
LOC: EMEROO 18:58 → 3ANU 18:58 → SUATTDRO 03-06 00:58
PROVIDERS: ADMIT Internal Medicine; ATTEND Student in an Organized Health Care Education/Training Program